=== PATIENT | female | born 1960 ===

== ENCOUNTER 2020-12-10 05:35 | Day surgery (SDC) | payer OTHER ==
[~2020-12-10 05:35] MED LIST: COZAAR100 MG PO; LIPITOR20 MG PO; SYNTHROID112 MCG
== END 2020-12-10 10:35 | disposition home or self-care (01) ==
LOC: CIR.AMB 05:35
PROVIDERS: ATTEND Surgery
DX: L72.0 Epidermal cyst (principal)